=== PATIENT | male | born 1985 | race Caucasian/White ===

== ENCOUNTER 2020-09-08 23:36 | Emergency (ER) | payer OTHER ==
[~2020-09-08] VITALS: Ht 170.2 cm; Wt 93.0 kg
--- NOTE | 2020-09-09 00:17 | NUR ---
Sam RN: pt from lobby to room 9
[2020-09-09] MEDS ORDERED: KETOROLAC 30 MG/1 ML IM ONE (00:30)
[2020-09-09] MEDS ORDERED: KETOROLAC 30 MG/1 ML ONE (00:32)
[2020-09-09 01:47] VITALS: BP 132/86
== END 2020-09-09 02:02 | disposition home or self-care (01) ==
LOC: ED 09-09 01:35
DX: S62.336A Displaced fracture of neck of fifth metacarpal bone, right hand, initial encounter for closed fracture (principal); F17.210 Nicotine dependence, cigarettes, uncomplicated; X58.XXXA Exposure to other specified factors, initial encounter; Y93.89 Activity, other specified; Y92.009 Unspecified place in unspecified non-institutional (private) residence as the place of occurrence of the external cause; Y99.8 Other external cause status
CPT/HCPCS: 29125; 73130; 96372; 99283; 99406; J1885